=== PATIENT | male | born 2000 ===

== ENCOUNTER 2020-07-22 08:45 | Emergency (ER) | payer OTHER ==
[~2020-07-22] VITALS: Ht 180.3 cm; Wt 81.8 kg
[2020-07-22 09:07] VITALS: TEMP 98.8
[2020-07-22] MEDS ORDERED: ADDERALL XR30 MG PO (09:30)
[2020-07-22] MEDS ORDERED: SYNTHROID0.125 MG/T PO (09:30)
[2020-07-22] MEDS ORDERED: CORTEF5 MG PO (09:30)
[2020-07-22] MEDS ORDERED: LEXAPRO 10MG10 MG PO (09:31)
[2020-07-22] MEDS ORDERED: DELATESTRYL200 MG/ML IM (09:32)
[2020-07-22 10:27] LABS: BASO # 0.1 (0.0-0.2); BASO % 1.2 % (0.0-2.0); EOS # 0.3 (0.0-0.7); EOS % 4.3 % (0-4.0); GRAN # 4.5 (1.4-6.5); GRAN % 60.3 % (42.2-75.2); HEMATOCRIT 48.6 % (42.0-52.0); LYMPH % 26.6 % (20.0-51.0); MEAN CELL VOLUME 85 fl (80.0-100.0); MEAN CORPUSCULAR HEMOGLOBIN 28 pg (27.0-31.0); MEAN CORPUSCULAR HGB CONC 33 g/dl (33.0-37.0); MEAN PLATELET VOLUME 9.5 fl (7.4-10.4); MONO # 0.5 (0.1-0.6); MONO % 7.3 % (1.7-9.3); PLATELET COUNT 249 K/mm3 (130-400); REDCELL DISTRIBUTION WIDTH-CV 12.8 % (11.5-14.5)
[2020-07-22 10:41] LABS: ALANINE AMINOTRANSFERASE 13 U/L (4-49); ALBUMIN 4.5 gm/dL (3.5-5.0); ALKALINE PHOSPHATASE 75 U/L (50-136); ANION GAP 10 mmol/L (7-16); AST,SGOT 23 U/L (15-37); BILIRUBIN,TOTAL 0.8 mg/dL (0.0-1.0); BLOOD UREA NITROGEN 14 mg/dL (9-20); CALCIUM 9.5 mg/dL (8.4-10.2); CARBON DIOXIDE 24 mmol/L (22-30); CHLORIDE 102 mmol/L (98-107); CREATININE, serum 1.19 (0.66-1.25); GLUCOSE 78 mg/dL (74-106); POTASSIUM 3.8 mmol/L (3.4-5.0); SODIUM 136 mmol/L (137-145); TOTAL PROTEIN 7.4 gm/dL (6.4-8.2)
[2020-07-22 10:53] LABS: TROPONIN-I < 0.012 ng/mL (0.000-0.035)
[2020-07-22 11:50] VITALS: BP 131/93; PULSE 112
== END 2020-07-22 11:50 | disposition home or self-care (01) ==
LOC: COL.ER 08:45
PROVIDERS: Physician Assistant
DX: R07.89 Other chest pain (principal); R03.0 Elevated blood-pressure reading, without diagnosis of hypertension; F90.9 Attention-deficit hyperactivity disorder, unspecified type; F41.9 Anxiety disorder, unspecified; F17.290 Nicotine dependence, other tobacco product, uncomplicated
CPT/HCPCS: J7030